=== PATIENT | male | born 2000 | race Caucasian/White ===

== ENCOUNTER 2018-07-11 09:44 | Emergency (ER) | END 2018-07-11 10:30 | disposition home or self-care (01) ==

== ENCOUNTER 2018-12-30 20:20 | Inpatient (IN) | payer MEDICAID ==
[~2018-12-30] VITALS: Ht 170.2 cm; Wt 96.8 kg
[~2018-12-30 20:20] MED LIST: AZIT250T PO; CIPR500T4 PO; D ME PO; GUAI120011 PO; IBUP-1542 PO; IBUP-1561 PO; NPH10OT RIGHT EAR
[2018-12-31] VITALS (12 sets, daily range): BP systolic 131–156; BP diastolic 70–73; PULSE 93–166; RESP 20; Ht 170.2 cm; Wt 96.8 kg
[2018-12-31] MEDS ORDERED: SOD CHLORIDE 0.9% 1,000 ML IV STA (01:19)
--- NOTE | 2018-12-31 01:47 | ERD ---
ER Documentation Chief Complaint Chief Complaint C/O RECTAL BLEEDING X'S 2 WEEKS HPI This is a 18-year-old male who complains of rectal bleeding for 2 weeks. He says is getting worse. The patient is having stools followed by maroon or bright red blood in the toilet. Sometimes is a bowel movement and is only blood. Denies any abdominal pain. However he says today when he gets up to walk around his heart starts pounding hard. He is having no chest pain or shortness of breath just any exertion makes his heartbeat hard he states. No history of hemorrhoids or GI symptoms in the past. No anal or rectal or abdominal pain during bowel movements. He says he will have multiple bloody stools each day. ROS All systems reviewed and are negative except as per history of present illness. Medications Home Meds Active Scripts Neomycin/Polymyxin/Hydrocort* (Cortisporin* Otic) 10 Ml Susp, 4 DROP RIGHT EAR QID for 7 Days, EA Prov:RACHELLE RANGEL MD 07/11/18 Ibuprofen* (Motrin*) 400 Mg Tab, 400 MG PO Q8 for 5 Days, #15 TAB Prov:RACHELLE RANGEL MD 07/11/18 Ciprofloxacin Hcl* (Ciprofloxacin Hcl*) 500 Mg Tablet, 500 MG PO BID for 7 Days, TAB Prov:RACHELLE RANGEL MD 07/11/18 Guaifenesin (Mucinex) 1,200 Mg Tab.er.12h, 1200 MG PO AC BREAKFAST for 7 Days, TAB Prov:RICHI QUEEN PA-C 02/03/18 D-Methorphan/Acetamin/Doxylamn (Cough & Sore Throat Liquid) 237 Ml Liquid, 237 ML PO QHS for 7 Days Prov:RICHI QUEEN PA-C 02/03/18 Azithromycin* (Zithromax*) 250 Mg Tablet, 250 MG PO .EVONNE DIRECTED, #6 TAB TAKE 500 MG (2 TABS) THE FIRST DAY THEN 250 MG (1 TAB) DAYS 2-5 Prov:RICHI QUEEN PA-C 02/03/18 Ibuprofen* (Motrin*) 600 Mg Tab, 600 MG PO Q6H PRN for PAIN AND OR ELEVATED TEMP, #30 TAB Prov:RICHI QUEEN PA-C 02/03/18 Ibuprofen* (Motrin*) 600 Mg Tab, 600 MG PO Q6H PRN for PAIN AND OR ELEVATED TEMP, #30 Prov:DELFINAMELISSA Pasclae HE 04/29/15 Allergies Allergies: Coded Allergies: No Known Drug Allergy (Verified Allergy, Unknown, 02/14/07) PMhx/Soc History of Surgery: Yes (Tonsillectomy) Anesthesia Reaction: No Hx Neurological Disorder: No Hx Respiratory Disorders: No Hx Cardiac Disorders: No Hx Psychiatric Problems: No Hx Miscellaneous Medical Probl: No Hx Alcohol Use: No Hx Substance Use: No Hx Tobacco Use: Yes (marijuana) Smoking Status: Never smoker FmHx Family History: No coronary disease Physical Exam Vitals Vital Signs Date Temp Pulse Resp B/P (MAP) Pulse Ox O2 O2 Flow FiO2 Time Delivery Rate 12/30/18 99.4 120 18 153/69 0 23:05 (97) Physical Exam Const: Well-developed, well-nourished Head: Atraumatic, normocephalic Eyes: Normal Conjunctiva, PERRLA, EOMI, normal sclera, no nystagmus ENT: Normal External Ears, Nose and Mouth, moist mucus membranes. Neck: Full range of motion. No meningismus, no lymphadenopathy. Resp: Clear to auscultation bilaterally, no wheezing, rhonchi, rales Cardio: Regular rate and rhythm, no murmurs, S1 S2 present Abd: Soft, non tender x 4, non distended. Normal bowel sounds, no guarding or rebound, no pulsitile abdominal masses or bruits Skin: No petechiae or rashes, no ecchymosis , no maculopapular rash Back: No midline or flank tenderness Ext: No cyanosis, or edema, FROM x 4, normal inspection, neurovascularly intact x 4 Neur: Awake and alert, STR 5/5 x 4, sensation intact x 4, no focal findings, cerebellum intact Psych: Normal Mood and Affect Result Diagram: 12/31/1813012/31/18130 Results 24 hrs Laboratory Tests Test 12/31/18 01:31 White Blood Count 7.9 10^3/ul Red Blood Count 2.47 10^6/ul Hemoglobin 7.4 g/dl Hematocrit 21.1 % Mean Corpuscular Volume 85.4 fl Mean Corpuscular Hemoglobin 30.0 pg Mean Corpuscular Hemoglobin Concent 35.1 g/dl Red Cell Distribution Width 14.0 % Platelet Count 181 10^3/UL Mean Platelet Volume 10.5 fl Immature Granulocytes % 0.500 % Neutrophils % 65.5 % Lymphocytes % 25.1 % Monocytes % 7.6 % Eosinophils % 0.9 % Basophils % 0.4 % Nucleated Red Blood Cells % 0.4 /100WBC Immature Granulocytes # 0.040 10^3/ul Neutrophils # 5.2 10^3/ul Lymphocytes # 2.0 10^3/ul Monocytes # 0.6 10^3/ul Eosinophils # 0.1 10^3/ul Basophils # 0.0 10^3/ul Nucleated Red Blood Cells # 0.0 10^3/ul Prothrombin Time 13.7 Sec Prothrombin Time Ratio 1.1 INR International Normalized Ratio 1.04 Activated Partial Thromboplast Time 27.7 Sec Sodium Level 142 mmol/L Potassium Level 3.5 mmol/L Chloride Level 107 mmol/L Carbon Dioxide Level 27 mmol/L Anion Gap 8 Blood Urea Nitrogen 10 mg/dl Creatinine 0.80 mg/dl Est Glomerular Filtrat Rate mL/min > 60 mL/min Glucose Level 130 mg/dl Calcium Level 9.0 mg/dl Total Bilirubin 0.2 mg/dl Direct Bilirubin 0.00 mg/dl Indirect Bilirubin 0.2 mg/dl Aspartate Amino Transf (AST/SGOT) 32 IU/L Alanine Aminotransferase (ALT/SGPT) 47 IU/L Alkaline Phosphatase 83 IU/L Total Protein 6.1 g/dl Albumin 3.8 g/dl Globulin 2.30 g/dl Albumin/Globulin Ratio 1.65 Current Medications Medications Dose Sig/Sangeetha Start Time Status Last (Trade) Ordered Route PRN Stop Time Admin Dose Reason Admin Sodium 1,000 ml @ Q1H STAT 12/31/18 DC 12/31/18 Chloride 1,000 mls/hr IV 01:19 01:36 12/31/18 02:18 IV Flush 10 ml STK-MED 12/31/18 DC 12/31/18 (NS 10 ml) ONCE .ROUTE 01: 02:57 12/31/18 02:00 Sodium 100 ml @ ud STK-MED 12/31/18 DC 12/31/18 Chloride ONCE .ROUTE 01:59 02:57 12/31/18 02:00 Iohexol 150 ml STK-MED 12/31/18 DC 12/31/18 (Omnipaque ONCE .ROUTE 01:59 02:57 300mg/ ml) 12/31/18 02:00 Procedures/MDM Ordering MD: BRIAN HERNANDEZ DO Location: E/R Room/Bed: PROCEDURE: CT Abdomen and pelvis with contrast. CLINICAL INDICATION: Abdominal pain TECHNIQUE: CT scan of the abdomen and pelvis with contrast was performed on a multidetector high-resolution CT scan. The patient was scanned following the uncomplicated intravenous administration of 100 ml Omnipaque-300. Coronal and sagittal reformatted images were obtained from the axial source images. Standard CT of the abdomen pelvis with contrast protocols were performed. The total exam CTDI equals 19.99 mGy and the total exam DLP equals 1275.62 mGy- cm. One or more of the following dose reduction techniques were used: - Automated exposure control. - Adjustment of the mA and/or kV according to patient size. Use of iterative reconstruction technique. Dicom images are available COMPARISON: None. FINDINGS: Stomach, small bowel, large bowel and appendix are unremarkable. No evidence of intra-abdominal free air, free fluid, or abscesses. Prominent nonspecific lymph nodes in the right mid mesentery with short axis less than 1 cm. Possible mesenteric lymphadenitis. Kidneys are normal in size without calcified calculi hydronephrosis or intra renal masses bilaterally. No evidence ureteral calcified calculi or dilatation. Urinary bladder and prostate unremarkable. Normal size liver with diffuse hepatic fatty infiltration. No focal hepatic lesions. Spleen pancreas adrenal glands and gallbladder unremarkable. No evidence biliary ductal dilation. Lung bases unremarkable. Aorta unremarkable. Abdominal pelvic wall unremarkable. Osseous structures unremarkable. IMPRESSION: 1. No gastrointestinal disease. 2. Prominent nonspecific lymph nodes right mid mesentery rule out mesenteric lymphadenitis. 3. No calcified urinary calculi or obstructive uropathy. RPTAT:AAJJ Physician Lazaro Date Time Electronically viewed and signed by Physician Lazaro on 12/31/2018 03:11 BM/ CC: BRIAN HERNANDEZ DO [id number] No evidence of GI pathology at this time. Will need scope and PRBC's started in the ER for anemia - symptomatic. Will page GI validation specialist for consult. Critical Care Time: 30 minutes Treatments/Evaluations: Close monitoring and treatment of unstable vital signs, cardiorespiratory, and neurologic status, while maintaining tight balance of fluid, respiratory, and cardiac interventions. This time includes discussing the case with the patient and the patient's family. This time does not include all procedures stated elsewhere in this record. This time also includes reviewing old records, labs and radiological studies. This time includes examining and re- examining the patient. Additionally, this time also includes arranging care with admitting and consulting physicians. Departure Diagnosis: Primary Impression: Anemia Anemia type: unspecified type Qualified Codes: D64.9 - Anemia, unspecified Additional Impression: GI bleed GI bleed type/associated pathology: unspecified gastrointestinal hemorrhage type Qualified Codes: K92.2 - Gastrointestinal hemorrhage, unspecified Condition: Stable BRIAN HERNANDEZ DO Dec 31, 2018 01:47
[2018-12-31] MEDS ORDERED: IOHEXOL 300MG/ML 150 ML BTL ONE (01:59)
[2018-12-31] MEDS ORDERED: SOD CHLORIDE 0.9% 100 ML ONE (01:59)
[2018-12-31] MEDS ORDERED: SOD CHLORIDE 0.9% 1,000 ML IV SCH (03:37)
[2018-12-31] MEDS ORDERED: ACETAMINOPHEN 325 MG TAB PO PRN ×2 (04:00→05:30)
[2018-12-31] MEDS ORDERED: ONDANSETRON 4 MG INJ IV PRN ×2 (04:00→05:30)
[2018-12-31] MEDS ORDERED: NACL 0.9% 3 ML SYG IV SCH (05:30)
[2018-12-31] MEDS: DEXTROSE 5%-0.45% NACL 1,000 ML IV SCH ×2 (06:24→13:31)
[2018-12-31] MEDS: PANTOPRAZOLE 40 MG INJ IV SCH (06:24)
[2018-12-31] MEDS ORDERED: SOD CHLORIDE 0.9% 1,000 ML IV ONE (06:30)
--- NOTE | 2018-12-31 06:34 | HP ---
Date/Time of Note Date/Time of Note DATE: 12/31/18 TIME: 06:22 Assessment/Plan VTE Prophylaxis Pharmacological prophylaxis: heparin Lines/Catheters IV Catheter Type (from Nrs): Saline Lock Assessment/Plan Assessment/Plan 1. Rectal bleeding -Awaiting GI evaluation -PPI 2. Anemia: Secondary to above -Check ferritin/iron -Monitor hemoglobin and transfuse as needed Result Diagram: 12/31/18 0131 12/31/18 0131 Results 24hrs Laboratory Tests Test 12/31/18 01:31 White Blood Count 7.9 Red Blood Count 2.47 L Hemoglobin 7.4 L Hematocrit 21.1 L Mean Corpuscular Volume 85.4 Mean Corpuscular Hemoglobin 30.0 Mean Corpuscular Hemoglobin Concent 35.1 Red Cell Distribution Width 14.0 Platelet Count 181 Mean Platelet Volume 10.5 H Immature Granulocytes % 0.500 H Neutrophils % 65.5 Lymphocytes % 25.1 Monocytes % 7.6 Eosinophils % 0.9 Basophils % 0.4 Nucleated Red Blood Cells % 0.4 H Immature Granulocytes # 0.040 H Neutrophils # 5.2 Lymphocytes # 2.0 Monocytes # 0.6 Eosinophils # 0.1 Basophils # 0.0 Nucleated Red Blood Cells # 0.0 Prothrombin Time 13.7 Prothrombin Time Ratio 1.1 INR International Normalized Ratio 1.04 Activated Partial Thromboplast Time 27.7 Sodium Level 142 Potassium Level 3.5 Chloride Level 107 Carbon Dioxide Level 27 Anion Gap 8 Blood Urea Nitrogen 10 Creatinine 0.80 Est Glomerular Filtrat Rate mL/min > 60 Glucose Level 130 Calcium Level 9.0 Total Bilirubin 0.2 Direct Bilirubin 0.00 Indirect Bilirubin 0.2 Aspartate Amino Transf (AST/SGOT) 32 Alanine Aminotransferase (ALT/SGPT) 47 Alkaline Phosphatase 83 Total Protein 6.1 Albumin 3.8 Globulin 2.30 Albumin/Globulin Ratio 1.65 HPI/ROS Admit Date/Time Admit Date/Time Dec 31, 2018 at 03:37 Hx of Present Illness This is a 18-year-old male with no significant past medical history presents the ER complaining of rectal bleeding. It started 2 weeks ago and has been pro gressively getting worse. Denied abdominal pain. Denied hematemesis. Denied similar rectal bleeding in the past. When he presents to the ER, he was tachycardic, otherwise BP was in acceptable range. Hemoglobin was found to be 7.4. PMH/Family/Social Past Medical History Medications Current Medications Sodium Chloride 1,000 ml @ 80 mls/hr [id number] IV ; Start 12/31/18 at 03:37; Stop 12/31/18 at 16:06 Ondansetron HCl (Zofran Inj) 4 mg ER BRIDGE PRN IV NAUSEA/VOMITING; Start 12/31/18 at 04:00; Stop 01/01/19 at 03:59 Acetaminophen (Tylenol Tab) 650 mg ER BRIDGE PRN PO .MILD PAIN 1-3 OR TEMP; Start 12/31/18 at 04:00; Stop 01/01/19 at 03:59 Dextrose/Sodium Chloride 1,000 ml @ 120 mls/hr Q8H20M IV ; Start 12/31/18 at 05:11 IV Flush (NS 3 ml) 3 ml PER PROTOCOL IV ; Start 12/31/18 at 05:30 Ondansetron HCl (Zofran Inj) 4 mg Q6H PRN IV NAUSEA/VOMITING; Start 12/31/18 at 05:30 Acetaminophen (Tylenol Tab) 650 mg Q6H PRN PO .PAIN 1-3 OR TEMP; Start 12/31/18 at 05:30 Pantoprazole (Protonix Iv) 40 mg DAILY@0600 IV ; Start 12/31/18 at 06:00 Coded Allergies: No Known Drug Allergy (Verified Allergy, Unknown, 02/14/07) Social History Smoking Status: Never smoker Exam/Review of Systems Vital Signs Vitals Vital Signs Date Temp Pulse Resp B/P (MAP) Pulse Ox O2 O2 Flow FiO2 Time Delivery Rate 12/31/18 166 06:05 12/31/18 98.4 22 125/66 100 Room Air 05:31 (85) Exam Exam Past Surgical History Past Surgical Hx: other (see hpi) Family History Significant Family History: no pertinent family hx Social History Alcohol Use: other Smoking Status: Unknown if ever smoked Drug Use: none, other Exam Constitutional: other (no acute distress) Head: normocephalic, atraumatic Eyes: PERRL Respiratory: clear to auscultation Cardiovascular: regular rate and rhythm Gastrointestinal: soft ZULMA MISTRY MD Dec 31, 2018 06:33
--- NOTE | 2018-12-31 15:01 | PN ---
Date/Time of Note Date/Time of Note DATE: 12/31/18 TIME: 15:00 Assessment/Plan VTE Prophylaxis Risk score (from [facility] [place])>0 risk: 1 SCD applied (from [facility] [place]): Yes Pharmacological prophylaxis: NA/contraindicated Pharm contraindication: bleeding Lines/Catheters IV C[facility]ter Type (from [facility]): Peripheral IV Assessment/Plan Hospital Course 1. Rectal bleeding -Awaiting GI evaluation -PPI 2. Anemia: Secondary to above -Iron panel was normal -Transfuse 2 units Prophylaxis: SCDs Result Diagram: 12/31/18 0131 12/31/18 0131 Results 24hrs Laboratory Tests Test 12/31/18 01:31 12/31/18 06:16 White Blood Count 7.9 Red Blood Count 2.47 L Hemoglobin 7.4 L Hematocrit 21.1 L Mean Corpuscular Volume 85.4 Mean Corpuscular Hemoglobin 30.0 Mean Corpuscular Hemoglobin Concent 35.1 Red Cell Distribution Width 14.0 Platelet Count 181 Mean Platelet Volume 10.5 H Immature Granulocytes % 0.500 H Neutrophils % 65.5 Lymphocytes % 25.1 Monocytes % 7.6 Eosinophils % 0.9 Basophils % 0.4 Nucleated Red Blood Cells % 0.4 H Immature Granulocytes # 0.040 H Neutrophils # 5.2 Lymphocytes # 2.0 Monocytes # 0.6 Eosinophils # 0.1 Basophils # 0.0 Nucleated Red Blood Cells # 0.0 Prothrombin Time 13.7 Prothrombin Time Ratio 1.1 INR International Normalized Ratio 1.04 Activated Partial Thromboplast Time 27.7 Sodium Level 142 Potassium Level 3.5 Chloride Level 107 Carbon Dioxide Level 27 Anion Gap 8 Blood Urea Nitrogen 10 Creatinine 0.80 Est Glomerular Filtrat Rate mL/min > 60 Glucose Level 130 Calcium Level 9.0 Total Bilirubin 0.2 Direct Bilirubin 0.00 Indirect Bilirubin 0.2 Aspartate Amino Transf (AST/SGOT) 32 Alanine Aminotransferase (ALT/SGPT) 47 Alkaline Phosphatase 83 Total Protein 6.1 Albumin 3.8 Globulin 2.30 Albumin/Globulin Ratio 1.65 Iron Level 75 Total Iron Binding Capacity 315 Percent Iron Saturation 24 Ferritin 42.1 Subjective 24 Hr Interval Summary Genitourinary: bleeding Exam/Review of Systems Exam Vitals Vital Signs Date Temp Pulse Resp B/P (MAP) Pulse Ox O2 O2 Flow FiO2 Time Delivery Rate 12/31/18 93 12:13 12/31/18 98.2 20 154/72 99 11:26 (99) 12/31/18 Room Air 05:31 Intake and Output 12/30/18 12/30/18 12/31/18 1515:00 23:00 07:00 IntakeIntake Total 200 ml BalanceBalance 200 ml Constitutional: alert, oriented Respiratory: clear to auscultation Cardiovascular: regular rate and rhythm Gastrointestinal: soft; No distended Musculoskeletal: nl extremities to inspection Results Results 24hrs Laboratory Tests Test 12/31/18 01:31 12/31/18 06:16 White Blood Count 7.9 Red Blood Count 2.47 L Hemoglobin 7.4 L Hematocrit 21.1 L Mean Corpuscular Volume 85.4 Mean Corpuscular Hemoglobin 30.0 Mean Corpuscular Hemoglobin Concent 35.1 Red Cell Distribution Width 14.0 Platelet Count 181 Mean Platelet Volume 10.5 H Immature Granulocytes % 0.500 H Neutrophils % 65.5 Lymphocytes % 25.1 Monocytes % 7.6 Eosinophils % 0.9 Basophils % 0.4 Nucleated Red Blood Cells % 0.4 H Immature Granulocytes # 0.040 H Neutrophils # 5.2 Lymphocytes # 2.0 Monocytes # 0.6 Eosinophils # 0.1 Basophils # 0.0 Nucleated Red Blood Cells # 0.0 Prothrombin Time 13.7 Prothrombin Time Ratio 1.1 INR International Normalized Ratio 1.04 Activated Partial Thromboplast Time 27.7 Sodium Level 142 Potassium Level 3.5 Chloride Level 107 Carbon Dioxide Level 27 Anion Gap 8 Blood Urea Nitrogen 10 Creatinine 0.80 Est Glomerular Filtrat Rate mL/min > 60 Glucose Level 130 Calcium Level 9.0 Total Bilirubin 0.2 Direct Bilirubin 0.00 Indirect Bilirubin 0.2 Aspartate Amino Transf (AST/SGOT) 32 Alanine Aminotransferase (ALT/SGPT) 47 Alkaline Phosphatase 83 Total Protein 6.1 Albumin 3.8 Globulin 2.30 Albumin/Globulin Ratio 1.65 Iron Level 75 Total Iron Binding Capacity 315 Percent Iron Saturation 24 Ferritin 42.1 Medications Medication Current Medications Sodium Chloride 1,000 ml @ 80 mls/hr [id number] IV ; Start 12/31/18 at 03:37; Stop 12/31/18 at 16:06 Ondansetron HCl (Zofran Inj) 4 mg ER BRIDGE PRN IV NAUSEA/VOMITING; Start 12/31/18 at 04:00; Stop 01/01/19 at 03:59 Acetaminophen (Tylenol Tab) 650 mg ER BRIDGE PRN PO .MILD PAIN 1-3 OR TEMP; Start 12/31/18 at 04:00; Stop 01/01/19 at 03:59 Dextrose/Sodium Chloride 1,000 ml @ 120 mls/hr Q8H20M IV Last administered on 12/31/18at 06:24; Admin Dose 120 MLS/HR; Start 12/31/18 at 05:11 IV Flush (NS 3 ml) 3 ml PER PROTOCOL IV ; Start 12/31/18 at 05:30 Ondansetron HCl (Zofran Inj) 4 mg Q6H PRN IV NAUSEA/VOMITING; Start 12/31/18 at 05:30 Acetaminophen (Tylenol Tab) 650 mg Q6H PRN PO .PAIN 1-3 OR TEMP; Start 12/31/18 at 05:30 Pantoprazole (Protonix Iv) 40 mg DAILY@0600 IV Last administered on 12/31/18at 06:24; Admin Dose 40 MG; Start 12/31/18 at 06:00 LAUREANO BRIDGES Dec 31, 2018 15:01
--- NOTE | 2018-12-31 15:54 | CONS ---
Assessment/Plan Assessment/Plan Hospital Course (Demo Recall) Summary Assessment and Plan: Assessment: Hematochezia Normocytic anemia Obesity Plan: Clear liquid diet NPO after 01/01/19 0800 EGD/Colonoscopy tomorrow Endoscopy - risks/benefits/alternatives/indications of procedure and sedation/anesthesia discussed with patient who states understanding and gives informed consent to proceed. Patient seen in collaboration with Dr. Guevara Consultation Date/Type/Reason Admit Date/Time Dec 31, 2018 at 03:37 Date of Consultation: Dec 31, 2018 Type of Consult GI Date/Time of Note DATE: 12/31/18 TIME: 15:42 Hx of Present Illness This is a 18 year old male with no significant PMH who presented to the ED with progressive rectal bleeding. Patient states symptoms first started about two week ago. Patient states blood is noted to be "dark red". He denies n/v or abd pain. No hx of chronic NSAIDs, or ETOH use. Hg bon admission 7's pt is s/p blood transfusions. Give clinical picture we will plan for EG/colonoscopy tomorrow. I reviewed risks/benefits of sedation and procedure with patient who verbalized understanding and is agreeable to procedure. Review of Systems: A 12 system, review was conducted and is negative except as noted in the HPI or here. Past Medical History Home Meds Active Scripts Neomycin/Polymyxin/Hydrocort* (Cortisporin* Otic) 10 Ml Susp, 4 DROP RIGHT EAR QID for 7 Days, EA Prov:RACHELLE RANGEL MD 07/11/18 Ibuprofen* (Motrin*) 400 Mg Tab, 400 MG PO Q8 for 5 Days, #15 TAB Prov:RACHELLE RANGEL MD 07/11/18 Ciprofloxacin Hcl* (Ciprofloxacin Hcl*) 500 Mg Tablet, 500 MG PO BID for 7 Days, TAB Prov:RACHELLE RANGEL MD 07/11/18 Guaifenesin (Mucinex) 1,200 Mg Tab.er.12h, 1200 MG PO AC BREAKFAST for 7 Days, TAB Prov:RICHI QUEEN PA-C 02/03/18 D-Methorphan/Acetamin/Doxylamn (Cough & Sore Throat Liquid) 237 Ml Liquid, 237 ML PO QHS for 7 Days Prov:RICHI QUEEN PA-C 02/03/18 Azithromycin* (Zithromax*) 250 Mg Tablet, 250 MG PO .PippaJUSTICEALEXANDRO DIRECTED, #6 TAB TAKE 500 MG (2 TABS) THE FIRST DAY THEN 250 MG (1 TAB) DAYS 2-5 Prov:RICHI QUEEN PA-C 02/03/18 Ibuprofen* (Motrin*) 600 Mg Tab, 600 MG PO Q6H PRN for PAIN AND OR ELEVATED TEMP, #30 TAB Prov:RICHI QUEEN PA-C 02/03/18 Ibuprofen* (Motrin*) 600 Mg Tab, 600 MG PO Q6H PRN for PAIN AND OR ELEVATED TEMP, #30 Prov:MELISSA MATHIS NP 04/29/15 Medications Current Medications Sodium Chloride 1,000 ml @ 80 mls/hr [id number] IV ; Start 12/31/18 at 03:37; Stop 12/31/18 at 16:06 Ondansetron HCl (Zofran Inj) 4 mg ER BRIDGE PRN IV NAUSEA/VOMITING; Start 12/31/18 at 04:00; Stop 01/01/19 at 03:59 Acetaminophen (Tylenol Tab) 650 mg ER BRIDGE PRN PO .MILD PAIN 1-3 OR TEMP; Start 12/31/18 at 04:00; Stop 01/01/19 at 03:59 Dextrose/Sodium Chloride 1,000 ml @ 120 mls/hr Q8H20M IV Last administered on 12/31/18at 06:24; Admin Dose 120 MLS/HR; Start 12/31/18 at 05:11 IV Flush (NS 3 ml) 3 ml PER PROTOCOL IV ; Start 12/31/18 at 05:30 Ondansetron HCl (Zofran Inj) 4 mg Q6H PRN IV NAUSEA/VOMITING; Start 12/31/18 at 05:30 Acetaminophen (Tylenol Tab) 650 mg Q6H PRN PO .PAIN 1-3 OR TEMP; Start 12/31/18 at 05:30 Pantoprazole (Protonix Iv) 40 mg DAILY@0600 IV Last administered on 12/31/18at 06:24; Admin Dose 40 MG; Start 12/31/18 at 06:00 Allergies: Coded Allergies: No Known Drug Allergy (Verified Allergy, Unknown, 02/14/07) Social History Smoking Status: Never smoker Exam/Review of Systems Exam Vitals Vital Signs Date Temp Pulse Resp B/P (MAP) Pulse Ox O2 O2 Flow FiO2 Time Delivery Rate 12/31/18 98.3 98 20 131/70 100 15:19 (90) 12/31/18 Room Air 05:31 Intake and Output 12/30/18 12/30/18 12/31/18 1515:00 23:00 07:00 IntakeIntake Total 200 ml BalanceBalance 200 ml Exam PHYSICAL EXAMINATION: GENERAL: Well developed, well nourished, alert & oriented x 3, in no acute distress SKIN: No lesions HEAD: Normocephalic, atraumatic, no tenderness. EYES: Pupils equal reactive to light and accommodation, full extraocular movements. EARS/NOSE AND THROAT: Ears normal, nose normal, oropharynx normal NECK: Supple, no masses CHEST: Inspection within normal limits. CARDIOVASCULAR: Heart: Regular rate and rhythm RESPIRATORY: Lungs clear to auscultation GASTROINTESTINAL AND LIVER: Abdomen: Soft, non tenderness, non-distended, no hernias, no masses, no organomegaly, normoactive bowel sounds. Rectal: Deferred. Results Result Diagram: 12/31/18 0131 12/31/18 0131 Results 24hrs Laboratory Tests Test 12/31/18 01:31 12/31/18 06:16 White Blood Count 7.9 Red Blood Count 2.47 L Hemoglobin 7.4 L Hematocrit 21.1 L Mean Corpuscular Volume 85.4 Mean Corpuscular Hemoglobin 30.0 Mean Corpuscular Hemoglobin Concent 35.1 Red Cell Distribution Width 14.0 Platelet Count 181 Mean Platelet Volume 10.5 H Immature Granulocytes % 0.500 H Neutrophils % 65.5 Lymphocytes % 25.1 Monocytes % 7.6 Eosinophils % 0.9 Basophils % 0.4 Nucleated Red Blood Cells % 0.4 H Immature Granulocytes # 0.040 H Neutrophils # 5.2 Lymphocytes # 2.0 Monocytes # 0.6 Eosinophils # 0.1 Basophils # 0.0 Nucleated Red Blood Cells # 0.0 Prothrombin Time 13.7 Prothrombin Time Ratio 1.1 INR International Normalized Ratio 1.04 Activated Partial Thromboplast Time 27.7 Sodium Level 142 Potassium Level 3.5 Chloride Level 107 Carbon Dioxide Level 27 Anion Gap 8 Blood Urea Nitrogen 10 Creatinine 0.80 Est Glomerular Filtrat Rate mL/min > 60 Glucose Level 130 Calcium Level 9.0 Total Bilirubin 0.2 Direct Bilirubin 0.00 Indirect Bilirubin 0.2 Aspartate Amino Transf (AST/SGOT) 32 Alanine Aminotransferase (ALT/SGPT) 47 Alkaline Phosphatase 83 Total Protein 6.1 Albumin 3.8 Globulin 2.30 Albumin/Globulin Ratio 1.65 Iron Level 75 Total Iron Binding Capacity 315 Percent Iron Saturation 24 Ferritin 42.1 Medications Medication Current Medications Sodium Chloride 1,000 ml @ 80 mls/hr [id number] IV ; Start 12/31/18 at 03:37; Stop 12/31/18 at 16:06 Ondansetron HCl (Zofran Inj) 4 mg ER BRIDGE PRN IV NAUSEA/VOMITING; Start 12/31/18 at 04:00; Stop 01/01/19 at 03:59 Acetaminophen (Tylenol Tab) 650 mg ER BRIDGE PRN PO .MILD PAIN 1-3 OR TEMP; Start 12/31/18 at 04:00; Stop 01/01/19 at 03:59 Dextrose/Sodium Chloride 1,000 ml @ 120 mls/hr Q8H20M IV Last administered on 12/31/18at 06:24; Admin Dose 120 MLS/HR; Start 12/31/18 at 05:11 IV Flush (NS 3 ml) 3 ml PER PROTOCOL IV ; Start 12/31/18 at 05:30 Ondansetron HCl (Zofran Inj) 4 mg Q6H PRN IV NAUSEA/VOMITING; Start 12/31/18 at 05:30 Acetaminophen (Tylenol Tab) 650 mg Q6H PRN PO .PAIN 1-3 OR TEMP; Start 12/31/18 at 05:30 Pantoprazole (Protonix Iv) 40 mg DAILY@0600 IV Last administered on 12/31/18at 06:24; Admin Dose 40 MG; Start 12/31/18 at 06:00 KRISTINA METZ Dec 31, 2018 15:54
[2018-12-31] MEDS ORDERED: BISACODYL (EC) 5 MG TAB PO ONE (16:00)
[2018-12-31] MEDS ORDERED: MAGNESIUM CITRATE 300 ML BTL PO ONE (17:30)
[2018-12-31] MEDS ORDERED: POLYETHYLENE GLYCOL 3350 119 GM POWDER PO ONE (18:30)
[2019-01-01] VITALS (28 sets, daily range): BP systolic 104–158; BP diastolic 50–76; PULSE 73–151; RESP 12–29
[2019-01-01] MEDS: DEXTROSE 5%-0.45% NACL 1,000 ML IV SCH ×4 (00:56→22:51)
[2019-01-01] MEDS: PANTOPRAZOLE 40 MG INJ IV SCH (05:28)
[2019-01-01] MEDS ORDERED: POLYETHYLENE GLYCOL 3350 119 GM POWDER PO ONE (06:00)
[2019-01-01] MEDS ORDERED: BISACODYL (EC) 5 MG TAB PO ONE (08:00)
--- NOTE | 2019-01-01 16:41 | PREAC ---
Date/Time of Note Date/Time of Note DATE: 01/01/19 TIME: 16:40 Anesthesia Eval and Record Evaluation Time Pre-Procedure Interview DATE: 01/01/19 TIME: 16:40 Age 18 Sex male NPO: 8 hrs Preoperative diagnosis RECTAL BLEEDING Planned procedure COLONOSCOPY WITH BIOPSIES Past Medical History Past Medical History: Includes (LOWER GI BLEEDING) Surgery & Anesthesia Issues No known issue Meds Anticoagulation: No Beta Edgard within 24 hr: No Reason Beta Edgard not given: Pt. not on B-Edgard Active Scripts Neomycin/Polymyxin/Hydrocort* (Cortisporin* Otic) 10 Ml Susp, 4 DROP RIGHT EAR QID for 7 Days, EA Prov:RACHELLE RANGEL MD 07/11/18 Ibuprofen* (Motrin*) 400 Mg Tab, 400 MG PO Q8 for 5 Days, #15 TAB Prov:RACHELLE RANGEL MD 07/11/18 Ciprofloxacin Hcl* (Ciprofloxacin Hcl*) 500 Mg Tablet, 500 MG PO BID for 7 Days, TAB Prov:RACHELLE RANGEL MD 07/11/18 Guaifenesin (Mucinex) 1,200 Mg Tab.er.12h, 1200 MG PO AC BREAKFAST for 7 Days, TAB Prov:RICHI QUEEN PA-C 02/03/18 D-Methorphan/Acetamin/Doxylamn (Cough & Sore Throat Liquid) 237 Ml Liquid, 237 ML PO QHS for 7 Days Prov:RICHI QUEEN PA-C 02/03/18 Azithromycin* (Zithromax*) 250 Mg Tablet, 250 MG PO .EVONNE DIRECTED, #6 TAB TAKE 500 MG (2 TABS) THE FIRST DAY THEN 250 MG (1 TAB) DAYS 2-5 Prov:RICHI QUEEN PA-C 02/03/18 Ibuprofen* (Motrin*) 600 Mg Tab, 600 MG PO Q6H PRN for PAIN AND OR ELEVATED TEMP, #30 TAB Prov:RICHI QUEEN-C 02/03/18 Ibuprofen* (Motrin*) 600 Mg Tab, 600 MG PO Q6H PRN for PAIN AND OR ELEVATED T EMP, #30 Prov:MELISSA MATHIS NP 04/29/15 Current Medications Dextrose/Sodium Chloride 1,000 ml @ 120 mls/hr Q8H20M IV Last administered on 01/01/19at 14:06; Admin Dose 120 MLS/HR; Start 12/31/18 at 05:11 IV Flush (NS 3 ml) 3 ml PER PROTOCOL IV ; Start 12/31/18 at 05:30 Ondansetron HCl (Zofran Inj) 4 mg Q6H PRN IV NAUSEA/VOMITING Last administered on 12/31/18at 22:02; Admin Dose 4 MG; Start 12/31/18 at 05:30 Acetaminophen (Tylenol Tab) 650 mg Q6H PRN PO .PAIN 1-3 OR TEMP Last administered on 12/31/18 22:02; Admin Dose 650 MG; Start 12/31/18 at 05:30 Pantoprazole (Protonix Iv) 40 mg DAILY@0600 IV Last administered on 01/01/19at 05:28; Admin Dose 40 MG; Start 12/31/18 at 06:00 Meds reviewed: Yes Allergies Coded Allergies: No Known Drug Allergy (Verified Allergy, Unknown, 02/14/07) Allergies Reviewed: Yes Labs/Studies Labs Reviewed: Reviewed by anesthesiologist Result Diagram: 01/01/19 0603 12/31/18 0131 Laboratory Tests 01/01/19 06:03 test: N/A Pre-procedure Exam Last vitals Vital Signs Date Temp Pulse Resp B/P (MAP) Pulse Ox O2 O2 Flow FiO2 Time Delivery Rate 01/01/19 96 16:09 01/01/19 98.5 20 121/60 100 15:45 (80) 01/01/19 Room Air 00:16 Airway: Adequate mouth opening, Adequate thyromental dist Mallampati: Mallampati II Teeth: Normal Lung: Normal Heart: Normal ASA Physical Status ASA physical status: 1 Emergency: None Planned Anesthetic General/MAC: MAC Planned Pain Management Parenteral pain med Pre-operative Attestations Prior to commencing anesthesia and surgery, the patient was re-evaluated, there was verification of: *The patient's identity *The results of appropriate recent lab work and preoperative vital signs *The above evaluation not changing prior to induction *Anesthetic plan, risk benefits, alternative and complications discussed with patient/family; questions answered; patient/family understands, accepts and wishes to proceed. Dylon Pitts M.D. Jan 01, 2019 16:41
[2019-01-01] MEDS ORDERED: FENTAnyl 50 MCG/ML VIAL ONE (16:44)
[2019-01-01] MEDS ORDERED: LIDOCAINE 100 MG SYRINGE ONE (16:44)
[2019-01-01] MEDS ORDERED: PROPOFOL 40 ML ONE (16:44)
--- NOTE | 2019-01-01 16:55 | PN ---
Date/Time of Note Date/Time of Note DATE: 01/01/19 TIME: 16:54 Assessment/Plan VTE Prophylaxis Risk score (from Nsg)>0 risk: 1 Pharmacological prophylaxis: NA/contraindicated Pharm contraindication: bleeding Lines/Catheters IV Catheter Type (from Nrsg): Peripheral IV Assessment/Plan Hospital Course 1. Rectal bleeding -GI consultation appreciated, colonoscopy today -PPI 2. Anemia: Secondary to above -Iron panel was normal -Transfused 2 units Prophylaxis: SCDs Result Diagram: 01/01/19 0603 12/31/18 0131 Results 24hrs Laboratory Tests Test 01/01/19 06:03 01/01/19 08:00 White Blood Count 5.9 # Red Blood Count 2.55 L Hemoglobin 7.6 L Hematocrit 22.5 L Mean Corpuscular Volume 88.2 Mean Corpuscular Hemoglobin 29.8 Mean Corpuscular Hemoglobin Concent 33.8 Red Cell Distribution Width 14.6 H Platelet Count 153 Mean Platelet Volume 10.8 H Immature Granulocytes % 0.300 Neutrophils % 57.2 Lymphocytes % 30.2 Monocytes % 10.3 Eosinophils % 1.7 Basophils % 0.3 Nucleated Red Blood Cells % 0.0 Immature Granulocytes # 0.020 Neutrophils # 3.4 Lymphocytes # 1.8 Monocytes # 0.6 Eosinophils # 0.1 Basophils # 0.0 Nucleated Red Blood Cells # 0.0 Lab Scanned Report BLOOD TRANSFUSION Subjective 24 Hr Interval Summary Gastrointestinal: blood Exam/Review of Systems Exam Vitals Vital Signs Date Temp Pulse Resp B/P (MAP) Pulse Ox O2 O2 Flow FiO2 Time Delivery Rate 01/01/19 96 16:09 01/01/19 98.5 20 121/60 100 15:45 (80) 01/01/19 Room Air 00:16 Intake and Output 12/31/18 12/31/18 01/01/19 1515:00 23:00 07:00 IntakeIntake Total 150 ml 450 ml 1620 ml OutputOutput Total 400 ml BalanceBalance -250 ml 450 ml 1620 ml Constitutional: alert, oriented Respiratory: clear to auscultation Cardiovascular: regular rate and rhythm Gastrointestinal: soft; No distended Musculoskeletal: nl extremities to inspection Results Results 24hrs Laboratory Tests Test 01/01/19 06:03 01/01/19 08:00 White Blood Count 5.9 # Red Blood Count 2.55 L Hemoglobin 7.6 L Hematocrit 22.5 L Mean Corpuscular Volume 88.2 Mean Corpuscular Hemoglobin 29.8 Mean Corpuscular Hemoglobin Concent 33.8 Red Cell Distribution Width 14.6 H Platelet Count 153 Mean Platelet Volume 10.8 H Immature Granulocytes % 0.300 Neutrophils % 57.2 Lymphocytes % 30.2 Monocytes % 10.3 Eosinophils % 1.7 Basophils % 0.3 Nucleated Red Blood Cells % 0.0 Immature Granulocytes # 0.020 Neutrophils # 3.4 Lymphocytes # 1.8 Monocytes # 0.6 Eosinophils # 0.1 Basophils # 0.0 Nucleated Red Blood Cells # 0.0 Lab Scanned Report BLOOD TRANSFUSION Medications Medication Current Medications Dextrose/Sodium Chloride 1,000 ml @ 120 mls/hr Q8H20M IV Last administered on 01/01/19 14:06; Admin Dose 120 MLS/HR; Start 12/31/18 at 05:11 IV Flush (NS 3 ml) 3 ml PER PROTOCOL IV ; Start 12/31/18 at 05:30 Ondansetron HCl (Zofran Inj) 4 mg Q6H PRN IV NAUSEA/VOMITING Last administered on 12/31/18at 22:02; Admin Dose 4 MG; Start 12/31/18 at 05:30 Acetaminophen (Tylenol Tab) 650 mg Q6H PRN PO .PAIN 1-3 OR TEMP Last administered on 12/31/18at 22:02; Admin Dose 650 MG; Start 12/31/18 at 05:30 Pantoprazole (Protonix Iv) 40 mg DAILY@0600 IV Last administered on 01/01/19 05:28; Admin Dose 40 MG; Start 12/31/18 at 06:00 LAUREANO BRIDGES Jan 01, 2019 16:55
[2019-01-01] MEDS ORDERED: TRIMETHOBENZAMIDE 100 MG/ML VIAL IM PRN (17:00)
[2019-01-01] MEDS ORDERED: IPRATROPIUM (NEB) 0.5 MG/2.5 ML AMP HHN PRN (17:00)
[2019-01-01] MEDS ORDERED: LABETALOL HCL 20MG INJ IV PRN (17:00)
[2019-01-01] MEDS ORDERED: OXYCODONE/ACETAMINOPHEN (5/325) TAB PO PRN ×2 (17:00)
[2019-01-01] MEDS ORDERED: HYDROmorphONE 1 MG/5 ML IV SYRINGE IV PRN ×3 (17:00)
[2019-01-01] MEDS ORDERED: FENTAnyl 50 MCG/ML VIAL IV PRN ×3 (17:00)
[2019-01-01] MEDS ORDERED: MIDAZOLAM 1 MG/ML 2 ML INJ IV PRN (17:00)
[2019-01-01] MEDS ORDERED: EPHEDrine SULFATE 50 MG/5 ML SYG IV PRN (17:00)
[2019-01-01] MEDS ORDERED: DIPHENHYDRAMINE 50 MG INJ IV PRN (17:00)
[2019-01-01] MEDS ORDERED: ALBUTEROL 0.083% (NEB) 2.5 MG/3 ML AMP HHN PRN (17:00)
[2019-01-01] MEDS ORDERED: ONDANSETRON 4 MG INJ IV PRN (17:00)
[2019-01-01] MEDS ORDERED: hydrALAzine 20 MG INJ IV PRN (17:00)
[2019-01-01] MEDS ORDERED: MEPERIDINE 25 MG INJ IV PRN (17:00)
--- NOTE | 2019-01-01 17:08 | HPN ---
Date/Time of Note Date/Time of Note DATE: 01/01/19 TIME: 17:08 Interval H&P Admission Note Pt. seen H&P reviewed: No system changes RUBENS DOYLE Jan 01, 2019 17:08
--- NOTE | 2019-01-01 17:27 | PAC ---
Date/Time of Note Date/Time of Note DATE: 01/01/19 TIME: 17:27 Post-Anesthesia Notes Post-Anesthesia Note Last documented vital signs Vital Signs Date Temp Pulse Resp B/P (MAP) Pulse Ox O2 O2 Flow FiO2 Time Delivery Rate 01/01/19 96 17:27 01/01/19 98.5 20 121/60 100 15:45 (80) 01/01/19 Room Air 00:16 Activity: WNL Respiratory function: WNL Cardiovascular function: WNL Mental status: Baseline Pain reasonably controlled: Yes Hydration appropriate: Yes Nausea/Vomiting absent: Yes Dylon Pitts M.D. Jan 01, 2019 17:27
[2019-01-02] VITALS (10 sets, daily range): BP systolic 120–147; BP diastolic 57–71; PULSE 86–119; RESP 20
[2019-01-02] MEDS: PANTOPRAZOLE 40 MG INJ IV SCH (06:23)
[2019-01-02] MEDS: DEXTROSE 5%-0.45% NACL 1,000 ML IV SCH ×2 (07:11→15:31)
[2019-01-02] MEDS ORDERED: SOD CHLORIDE 0.9% 250 ML IV* ONE (09:53)
[2019-01-02] MEDS ORDERED: PSYL0.526 PO (15:44)
[2019-01-02] MEDS ORDERED: PANT40TA4 PO (15:44)
--- NOTE | 2019-01-02 15:45 | PDOCDIS ---
Discharge Instructions CONDITION [id number] Patient Condition: [id number] Good HOME CARE INSTRUCTIONS: [id number] Diet Instructions: [id number] Regular [id number] Special Diet: [id number] Increase fiber ACTIVITY: [id number] Activity Restrictions: [id number] No Restrictions FOLLOW UP/APPOINTMENTS Follow-up Plan FOLLOW UP WITH YOUR PRIMARY CARE PHYSICIAN IN 1-2 WEEKS LAUREANO BRIDGES Jan 02, 2019 15:45
--- NOTE | 2019-01-02 15:47 | DS ---
Date/Time of Note Date/Time of Note DATE: 01/02/19 TIME: 15:45 Discharge Summary Admission/Discharge Info Admit Date/Time Dec 31, 2018 at 03:37 Discharge Date/Time January 02, 2019 Discharge Diagnosis 1. Rectal bleeding -GI consultation appreciated, colonoscopy shows internal hemorrhoids -DC with fiber supplements 2. Gastritis likely secondary to NSAIDs -No evidence of GI bleed -DC with PPI 3. Acute blood loss anemia secondary to GI bleed -Iron panel was normal -Status post 4 units Patient Condition: Good Hospital Course Patient is a 18-year-old male with no significant history, patient presents with severe anemia and rectal bleed. Patient was seen by GI, EGD showed hemorrhagic gastritis and colonoscopy showed internal hemorrhoids. Patient was transfused 4 units of packed red blood cells. Patient was taking significant amounts of NSAIDs and was advised to stop due to his gastritis. Patient was stable for DC, on day of discharge patient's vitals, labs and physical exam are stable. Home Meds Active Scripts Pantoprazole (Protonix) 40 Mg Tabec, 40 MG PO DAILY for 30 Days, #30 TAB Prov:LAUREANO BRIDGES 01/02/19 Psyllium Husk (Psyllium Fiber) 0.52 Gm Capsule, 0.52 GM PO TID for 30 Days, #90 CAP Prov:LAUREANO BRIDGES 01/02/19 Neomycin/Polymyxin/Hydrocort* (Cortisporin* Otic) 10 Ml Susp, 4 DROP RIGHT EAR QID for 7 Days, EA Prov:RACHELLE RANGEL MD 07/11/18 Guaifenesin (Mucinex) 1,200 Mg Tab.er.12h, 1200 MG PO AC BREAKFAST for 7 Days, TAB Prov:RICHI QUEEN PA-C 02/03/18 D-Methorphan/Acetamin/Doxylamn (Cough & Sore Throat Liquid) 237 Ml Liquid, 237 ML PO QHS for 7 Days Prov:RICHI QUEEN PA-C 02/03/18 Discontinued Scripts Ibuprofen* (Motrin*) 400 Mg Tab, 400 MG PO Q8 for 5 Days, #15 TAB Prov:RACHELLE RANGEL MD 07/11/18 Ciprofloxacin Hcl* (Ciprofloxacin Hcl*) 500 Mg Tablet, 500 MG PO BID for 7 Days, TAB Prov:RACHELLE RANGEL MD 07/11/18 Azithromycin* (Zithromax*) 250 Mg Tablet, 250 MG PO .EVONNE DIRECTED, #6 TAB TAKE 500 MG (2 TABS) THE FIRST DAY THEN 250 MG (1 TAB) DAYS 2-5 Prov:RICHI QUEEN PA-C 02/03/18 Ibuprofen* (Motrin*) 600 Mg Tab, 600 MG PO Q6H PRN for PAIN AND OR ELEVATED TEMP, #30 TAB Prov:RICHI QUEEN PA-C 02/03/18 Ibuprofen* (Motrin*) 600 Mg Tab, 600 MG PO Q6H PRN for PAIN AND OR ELEVATED TEMP, #30 Prov:MELISSA MATHIS NP 04/29/15 Follow-up Plan FOLLOW UP WITH YOUR PRIMARY CARE PHYSICIAN IN 1-2 WEEKS Primary Care Provider Not On Staff Doctor Time spent on discharge: > 30 minutes LAUREANO BRIDGES Jan 02, 2019 15:47
[2019-01-02] MEDS ORDERED: SUCRALFATE (100 MG/ML) 10ML CUP PO SCH (17:30)
--- NOTE | 2019-01-02 17:34 | PN ---
Date/Time of Note Date/Time of Note DATE: 01/02/19 TIME: 17:28 Assessment/Plan VTE Prophylaxis Risk score (from Ns)>0 risk: 2 SCD applied (from Ns): Yes Pharmacological prophylaxis: NA/contraindicated Pharm contraindication: bleeding Lines/Catheters IV C[facility]ter Type (from [facility] Peripheral IV Assessment/Plan Assessment/Plan Assessment: Hematochezia Normocytic anemia S/p EGD/Colonoscopy 01/01/19 - Hemorrhagic gastritis - Internal hemorrhoids Obesity Plan: Continue PPI BID x 2 months Carafate QID Monitor H and H F/u as an outpatient Patient seen in collaboration with Dr. Guevara Subjective: Patient is doing well. He is tolerating the diet without nausea or abd pain. Currently recieving a blood transfusion for hemoglobin of 7.5. No evidence of overt GI bleeding. Results of EGD reviewed with the patient. Will f/u as and OP. PHYSICAL EXAMINATION: GENERAL: Well developed, well nourished, alert & oriented x 3, in no acute distress SKIN: No lesions HEAD: Normocephalic, atraumatic, no tenderness. EYES: Pupils equal reactive to light and accommodation, full extraocular mov ements. EARS/NOSE AND THROAT: Ears normal, nose normal, oropharynx normal NECK: Supple, no masses CHEST: Inspection within normal limits. CARDIOVASCULAR: Heart: Regular rate and rhythm RESPIRATORY: Lungs clear to auscultation GASTROINTESTINAL AND LIVER: Abdomen: Soft, non tenderness, non-distended, no hernias, no masses, no organomegaly, normoactive bowel sounds. Rectal: Deferred. Result Diagram: 01/02/19 0618 12/31/18 0131 Results 24hrs Laboratory Tests Test 01/02/19 06:18 White Blood Count 6.9 Red Blood Count 2.56 L Hemoglobin 7.5 L Hematocrit 22.3 L Mean Corpuscular Volume 87.1 Mean Corpuscular Hemoglobin 29.3 Mean Corpuscular Hemoglobin Concent 33.6 Red Cell Distribution Width 14.7 H Platelet Count 167 Mean Platelet Volume 10.7 H Immature Granulocytes % 0.300 Neutrophils % 64.3 Lymphocytes % 23.2 Monocytes % 10.5 Eosinophils % 1.4 Basophils % 0.3 Nucleated Red Blood Cells % 0.3 H Immature Granulocytes # 0.020 Neutrophils # 4.5 Lymphocytes # 1.6 Monocytes # 0.7 Eosinophils # 0.1 Basophils # 0.0 Nucleated Red Blood Cells # 0.0 CC: TAI GUEVARA MD ; Exam/Review of Systems Exam Vitals Vital Signs Date Temp Pulse Resp B/P (MAP) Pulse Ox O2 O2 Flow FiO2 Time Delivery Rate 01/02/19 112 16:00 01/02/19 98.2 20 147/71 100 Room Air 11:17 (96) Intake and Output 01/01/19 01/01/19 01/02/19 1515:00 23:00 07:00 IntakeIntake Total 650 ml 1550 ml BalanceBalance 650 ml 1550 ml Results Results 24hrs Laboratory Tests Test 01/02/19 06:18 White Blood Count 6.9 Red Blood Count 2.56 L Hemoglobin 7.5 L Hematocrit 22.3 L Mean Corpuscular Volume 87.1 Mean Corpuscular Hemoglobin 29.3 Mean Corpuscular Hemoglobin Concent 33.6 Red Cell Distribution Width 14.7 H Platelet Count 167 Mean Platelet Volume 10.7 H Immature Granulocytes % 0.300 Neutrophils % 64.3 Lymphocytes % 23.2 Monocytes % 10.5 Eosinophils % 1.4 Basophils % 0.3 Nucleated Red Blood Cells % 0.3 H Immature Granulocytes # 0.020 Neutrophils # 4.5 Lymphocytes # 1.6 Monocytes # 0.7 Eosinophils # 0.1 Basophils # 0.0 Nucleated Red Blood Cells # 0.0 Medications Medication Current Medications Dextrose/Sodium Chloride 1,000 ml @ 120 mls/hr Q8H20M IV Last administered on 01/01/19at 14:06; Admin Dose 120 MLS/HR; Start 12/31/18 at 05:11 IV Flush (NS 3 ml) 3 ml PER PROTOCOL IV ; Start 12/31/18 at 05:30 Ondansetron HCl (Zofran Inj) 4 mg Q6H PRN IV NAUSEA/VOMITING Last administered on 12/31/18at 22:02; Admin Dose 4 MG; Start 12/31/18 at 05:30 Acetaminophen (Tylenol Tab) 650 mg Q6H PRN PO .PAIN 1-3 OR TEMP Last administered on 12/31/18at 22:02; Admin Dose 650 MG; Start 12/31/18 at 05:30 Pantoprazole (Protonix Iv) 40 mg DAILY@0600 IV Last administered on 01/02/19at 06:23; Admin Dose 40 MG; Start 12/31/18 at 06:00 BETINA WILD NP Jan 02, 2019 17:34
== END 2019-01-02 20:45 | disposition home or self-care (01) | DRG 378 ==
LOC: E/R 20:20 → TEL 12-31 03:37
PROVIDERS: ADMIT Internal Medicine; ATTEND Internal Medicine
PROC: 30233N1 Transfusion of Nonautologous Red Blood Cells into Peripheral Vein, Percutaneous Approach (ICD-10-PCS; 2018-12-31)
PROC: 0DJ08ZZ Inspection of Upper Intestinal Tract, Via Natural or Artificial Opening Endoscopic (ICD-10-PCS; principal; 2019-01-01 17:30)
PROC: 0DJD8ZZ Inspection of Lower Intestinal Tract, Via Natural or Artificial Opening Endoscopic (ICD-10-PCS; 2019-01-01 17:30)
PROC: 30233N1 Transfusion of Nonautologous Red Blood Cells into Peripheral Vein, Percutaneous Approach (ICD-10-PCS; 2019-01-02)
DX: K29.71 Gastritis, unspecified, with bleeding (principal); D62 Acute posthemorrhagic anemia; K64.8 Other hemorrhoids; K62.5 Hemorrhage of anus and rectum; E66.9 Obesity, unspecified; T39.395A Adverse effect of other nonsteroidal anti-inflammatory drugs [NSAID], initial encounter; Y92.89 Other specified places as the place of occurrence of the external cause; Z68.33 Body mass index [BMI] 33.0-33.9, adult
CPT/HCPCS: 36415; 36430; 74177; 80053; 82728; 83540; 85025; 85610; 85730; 86850; 86900; 86901; 86920; C9113; J2001; J2405; J3010; J7030; J7040; J7042; P9016; Q9967